=== PATIENT | female | born 1950 | race Caucasian/White ===

== ENCOUNTER 2021-05-03 17:30 | Day surgery (SDC) | payer OTHER ==
[2021-04-28 10:45] VITALS: BMI 29.8
[2021-05-03 09:18] LABS: CALCIUM 9.6 mg/dL (8.5-10.1)
[2021-05-03 09:20] LABS: ALBUMIN 4.2 g/dl (3.4-5.0); BLOOD UREA NITROGEN 10.6 mg/dL (7-18)
[2021-05-03 09:22] LABS: CREATININE 0.8 mg/dL (0.55-1.3)
[2021-05-03 09:23] LABS: BILIRUBIN,TOTAL 0.9 mg/dL (0.2-1); TOT PROT 8.2 g/dl (6.4-8.2)
[2021-05-03] MEDS: HYDROmorphone *PCA* 10MG/50ML DISP.SYRIN PCA SCH ×2 (14:03→17:49)
[2021-05-03] MEDS: INSULIN SLIDING SCALE (NOVOLOG) 1 VIAL SQ SCH ×2 (16:30→23:00)
[~2021-05-03 17:30] MED LIST: HYDROmorphone *PCA* 10MG/50ML DISP.SYRIN ONE; HYDROmorphone *PCA* 10MG/50ML DISP.SYRIN PCA SCH; HYDROmorphone HCl 2 MG/ML VIAL ONE; ISOSULFAN BLUE 50 MG/5 ML VIAL SQ ONE; KETAMINE HCL 200 MG/20 ML VIAL ONE; MIDAZOLAM HCL 2 MG/2 ML SINGLE DOSE VIAL ONE; NEOSTIGMINE METHYLSULFATE 0.5 MG/ML - 10 ML MDV ONE; ONDANSETRON 4 MG/2 ML VIAL IVPUSH PRN; PNEUMOC 13-VAL CONJ-DIP CRM/PF 0.5 ML DISP.SYRIN IM ONE; PROPOFOL 20 ML ONE; ROCURONIUM BROMIDE 50 MG/5 ML SYRINGE ONE; SUCCINYLCHOLINE CHLORIDE 200 MG/10 ML SYRINGE ONE; ceFAZolin SODIUM 1 GM VIAL IVPB ONE
[2021-05-03] MEDS ORDERED: CEFAZOLIN 1 GM in DEXTROSE 5%-WATER - 50 ML IVPB SCH (18:00)
[2021-05-03] MEDS ORDERED: ceFAZolin SODIUM 1 GM VIAL ONE (18:06)
[2021-05-03] MEDS ORDERED: DEXTROSE 5%-WATER - 50 ML IVPB ONE (18:06)
[2021-05-03] MEDS: LACTATED RINGERS SOLUTION 1,000 ML IV SCH (18:09)
[2021-05-03] MEDS: CEFAZOLIN 1 GM in DEXTROSE 5%-WATER - 50 ML IVPB SCH (18:09)
[2021-05-03] MEDS ORDERED: ATORVASTATIN CA 40 MG TABLET (FP) PO SCH (22:00)
[2021-05-04] MEDS ORDERED: ceFAZolin SODIUM 1 GM VIAL ONE ×2 (01:42→09:37)
[2021-05-04] MEDS ORDERED: DEXTROSE 5%-WATER - 50 ML IVPB ONE ×2 (01:43→09:38)
[2021-05-04] MEDS: CEFAZOLIN 1 GM in DEXTROSE 5%-WATER - 50 ML IVPB SCH ×2 (01:43→10:32)
[2021-05-04] MEDS: INSULIN SLIDING SCALE (NOVOLOG) 1 VIAL SQ SCH ×2 (07:17→14:28)
[2021-05-04] MEDS ORDERED: amLODIPine BESYLATE 5 MG TABLET (FP) PO SCH (10:00)
[2021-05-04] MEDS: HYDROmorphone *PCA* 10MG/50ML DISP.SYRIN PCA SCH (14:26)
[2021-05-04] MEDS: LACTATED RINGERS SOLUTION 1,000 ML IV SCH (14:28)
[2021-05-04 16:53] VITALS: BP 135/65; PULSE 70; TEMP 98.5
== END 2021-05-04 15:00 | disposition home or self-care (01) ==
LOC: J2C 17:30 → J5S 17:30 → JASUSAT 17:30 → J5S 18:22 → JASUSAT 05-04 15:00
PROVIDERS: ATTEND Surgery
PROC: 0HTT0ZZ Resection of Right Breast, Open Approach (ICD-10-PCS; principal; 2021-05-03 09:00)
PROC: 0HRT0JZ Replacement of Right Breast with Synthetic Substitute, Open Approach (ICD-10-PCS; 2021-05-03 09:00)
PROC: 07B50ZX Excision of Right Axillary Lymphatic, Open Approach, Diagnostic (ICD-10-PCS; 2021-05-03 09:00)
PROC: C71L1ZZ Planar Nuclear Medicine Imaging of Upper Chest Lymphatics using Technetium 99m (Tc-99m) (ICD-10-PCS; 2021-05-03 09:00)
DX: C50.911 Malignant neoplasm of unspecified site of right female breast (principal); C77.3 Secondary and unspecified malignant neoplasm of axilla and upper limb lymph nodes
CPT/HCPCS: 36415; 78195-TC; 80053; 82962; 86850; 86900; 86901; 88307-TC; 88342-TC; 94010; 94760; A9541

== ENCOUNTER 2021-05-31 04:15 | Day surgery (SDC) | payer OTHER ==
[2021-05-30 18:33] VITALS: BMI 28.2
[2021-05-31] MEDS ORDERED: LIDOCAINE HCL 1%, 10 MG/ML (20ML VIAL) ONE (07:53)
[2021-05-31] MEDS ORDERED: HEPARIN NA (PORCINE) 5,000 UNITS/ML 1ML VIAL ONE (07:53)
[2021-05-31] MEDS ORDERED: MIDAZOLAM HCL 2 MG/2 ML SINGLE DOSE VIAL ONE (08:50)
[2021-05-31] MEDS ORDERED: PROPOFOL 20 ML ONE ×2 (08:50)
[2021-05-31] MEDS ORDERED: SODIUM CHLORIDE 0.9% P/F 10 ML VIAL IJ ONE (08:51)
[2021-05-31] MEDS ORDERED: ceFAZolin SODIUM 1 GM VIAL ONE (08:51)
[2021-05-31] MEDS ORDERED: LIDOCAINE HCL/PF 2% SDV 5ML VIAL ONE (08:51)
[2021-05-31] MEDS ORDERED: ceFAZolin SODIUM 1 GM VIAL IVPB ONE (09:39)
[2021-05-31] MEDS ORDERED: GLYCOPYRROLATE 0.2 MG/1 ML VIAL ONE (09:44)
[2021-05-31] MEDS ORDERED: LIDOCAINE HCL 1%, 10 MG/ML (20ML VIAL) NR ONE (09:50)
[2021-05-31] MEDS ORDERED: ONDANSETRON 4 MG/2 ML VIAL IVPUSH PRN (10:16)
[2021-05-31] MEDS ORDERED: oxyCODONE HCL 5 MG TABLET PO PRN (10:16)
[2021-05-31] MEDS ORDERED: PROMETHAZINE HCL 25 MG/1 ML VIAL IVPUSH PRN (10:16)
[2021-05-31] MEDS ORDERED: LACTATED RINGERS SOLUTION 1,000 ML IV SCH (10:30)
[2021-05-31 12:20] VITALS: TEMP 98
[2021-05-31] MEDS ORDERED: ACETAMINOPHEN 325 MG TABLET (FP) ONE (12:25)
[2021-05-31 14:08] VITALS: BP 120/62; PULSE 60
== END 2021-05-31 12:50 | disposition home or self-care (01) ==
LOC: JASU-SURG 04:15
PROVIDERS: ATTEND Surgery
PROC: 0JH63WZ Insertion of Totally Implantable Vascular Access Device into Chest Subcutaneous Tissue and Fascia, Percutaneous Approach (ICD-10-PCS; principal; 2021-05-31 09:00)
DX: C50.911 Malignant neoplasm of unspecified site of right female breast (principal); E11.9 Type 2 diabetes mellitus without complications; I10 Essential (primary) hypertension; Z79.84 Long term (current) use of oral hypoglycemic drugs
CPT/HCPCS: 36561; C1788; 71045-TC-FY; 76000-TC-FY; 82962; 94760; J1644